=== PATIENT | female | born 1935 | race Caucasian/White ===

== ENCOUNTER 2016-10-10 18:42 | Emergency (ER) | payer MEDICARE ==
[2016-10-10] MEDS ORDERED: ACETAMINOPHEN 325 MG TABLET ONE (21:11)
--- NOTE | 2016-10-11 08:01 | RAD ---
HISTORY: , And is over iliac and greater trochanteric region. No known trauma. COMPARISONS: Right hip series 08/01/2012. FINDINGS: AP pelvis with AP and frog-leg lateral views of the left hip are obtained. Patient is rotated to the right distorting the normal anatomy. Bones:No fracture or dislocation. Diffuse osteopenia is present. Spurring along the lateral acetabular roof is identified bilaterally, mild to moderate. Probable rim osteophytes are identified. Joints: Mild superior joint space loss is present. Soft tissue: Normal Other: Nonspecific bowel gas pattern overlays the osseous structures.. IMPRESSION: No fracture or dislocation. Degenerative change with diffuse osteopenia.
--- NOTE | 2016-10-11 08:04 | RAD ---
HISTORY: L-spine tenderness. No known trauma. COMPARISON: 08/01/2012 Findings: AP and lateral views of the lumbar spine with AP spot film of the lumbo-sacral junction are obtained. Grade 2-3 anterolisthesis of L5 on S1. There is been interval compression deformity of L3 and to a lesser degree L4. This may be the cause of the patient's stated tenderness. Severe facet disease is noted at L4-5 and L5-S1. The disk spaces and vertebral body heights are well-preserved. The sacrum and sacroiliac joints are normal. IMPRESSION: Compression deformities of L3 and L4 of unknown chronicity. Degenerative changes which have progressed from prior study. Grade 2-3 anterolisthesis of L5 on S1.
--- NOTE | 2016-10-11 08:21 | CT ---
L-SPINE W/O CON HISTORY: Left spine tenderness after getting into a truck 2 weeks ago. No specific injury. COMPARISONS: Plain films earlier on the same day and 08/01/2012. TECHNIQUE: Contiguous axial 2 mm images of the lumbar spine are obtained without IV contrast. Sagittal and coronal reformations are also obtained this time. CTDI: 15.1 DLP: 401.9 FINDINGS: As noted on plain film study there is severe compression deformity of L3 with moderate to severe compression deformity of L4 in comparison to prior study. No significant retropulsion of bone is identified. There is mild compression of T12, not fully visualized on the prior film study. This is thought to be more acute given presence of paravertebral hematoma. No significant retropulsion of bone is present. There is diffuse osteopenia. Chronic mild height loss at L5 is also present. Grade 2/3 anterolisthesis of L5 on S1 is again identified. There is multilevel facet disease at L4-5 and L5-S1, as seen on plain film study. Moderate atherosclerotic disease of the abdominal aorta and branch vessels.. IMPRESSION: Acute compression deformity of T12 with paravertebral hematoma. Probable older compression fractures of L3 and 4. Grade 2/3 anterolisthesis of L5 on S1 with multilevel degenerative changes as above. Preliminary report was provided by [employer] at approximately 2254 hours on 10/11/2016.
== END 2016-10-10 23:09 | disposition home or self-care (01) ==
LOC: ED 18:42
DX: M25.552 Pain in left hip (principal); S22.080A Wedge compression fracture of T11-T12 vertebra, initial encounter for closed fracture; S32.040A Wedge compression fracture of fourth lumbar vertebra, initial encounter for closed fracture; S32.050A Wedge compression fracture of fifth lumbar vertebra, initial encounter for closed fracture; X50.0XXA Overexertion from strenuous movement or load, initial encounter; Y92.9 Unspecified place or not applicable
CPT/HCPCS: 73502; 72100; 72131; 99283 ×2; A9270